=== PATIENT | female | born 1950 | race Caucasian/White ===

== ENCOUNTER → 2017-09-08 | Outpatient (CLI) | payer OTHER | LOC: M.RAD 11:11 | DX: Z12.31 Encounter for screening mammogram for malignant neoplasm of breast (principal) ==

== ENCOUNTER → 2017-10-15 | Outpatient (CLI) | payer OTHER | LOC: M.RAD 13:54 | DX: Z78.0 Asymptomatic menopausal state (principal) ==

== ENCOUNTER → 2018-09-04 | Outpatient (CLI) | payer OTHER | LOC: M.ULTRA 13:51 | DX: M25.561 Pain in right knee (principal) ==

== ENCOUNTER → 2020-05-11 | Outpatient (CLI) | payer MEDICARE | LOC: M.RAD 13:44 | PROVIDERS: ATTEND Nurse Practitioner Family | DX: Z12.31 Encounter for screening mammogram for malignant neoplasm of breast (principal) ==

== ENCOUNTER 2020-11-28 19:35 | Emergency (ER) | payer MEDICARE ==
[~2020-11-28] VITALS: Ht 160 cm; Wt 86.2 kg
[2020-11-28] MEDS ORDERED: LOSARTAN POTAS100 MG PO (19:54)
[2020-11-28] MEDS ORDERED: SIMVASTATIN80 MG PO (19:55)
[2020-11-28] MEDS ORDERED: AMLODIPINE BESY10 MG PO (19:55)
[2020-11-28] MEDS ORDERED: SYNTHROID137 MC1 PO (19:55)
[2020-11-28] MEDS ORDERED: HYDROCHLOROTHIA25 M1 PO (19:55)
[2020-11-28] MEDS ORDERED: BUPROPION XL300 MG PO (19:56)
[2020-11-28] MEDS ORDERED: CELEXA 20 MG TA20 MG PO (19:56)
[2020-11-28] MEDS ORDERED: CELECOXIB100 MG PO (19:57)
[2020-11-28] MEDS ORDERED: GLUCOSAMINE H1500 MG PO (19:58)
[2020-11-28] MEDS ORDERED: FLEXERIL PO (20:41)
[2020-11-28] MEDS ORDERED: HYDROCODON-ACE1 EAC8 PO (20:41)
[2020-11-28 20:52] VITALS: BP 143/79
== END 2020-11-28 20:53 | disposition home or self-care (01) ==
LOC: M.ERS 19:35
DX: S29.8XXA Other specified injuries of thorax, initial encounter (principal); W22.8XXA Striking against or struck by other objects, initial encounter; Y93.89 Activity, other specified; Y92.89 Other specified places as the place of occurrence of the external cause; Y99.8 Other external cause status

== ENCOUNTER → 2020-12-25 | Outpatient (CLI) | payer MEDICARE ==
[~2020-12-25] MED LIST: AMLODIPINE BESY10 MG PO; BUPROPION XL300 MG PO; CELECOXIB100 MG PO; CELEXA 20 MG TA20 MG PO; FLEXERIL PO; GLUCOSAMINE H1500 MG PO; HYDROCHLOROTHIA25 M1 PO; HYDROCODON-ACE1 EAC8 PO; LOSARTAN POTAS100 MG PO; SIMVASTATIN80 MG PO; SYNTHROID137 MC1 PO
== END ==
LOC: M.RAD 13:30
PROVIDERS: ATTEND Nurse Practitioner Family
DX: Z78.0 Asymptomatic menopausal state (principal)

== ENCOUNTER → 2021-06-11 | Outpatient (CLI) | payer MEDICARE | LOC: M.RAD 14:33 | PROVIDERS: ATTEND Nurse Practitioner Family | DX: Z12.31 Encounter for screening mammogram for malignant neoplasm of breast (principal) ==